=== PATIENT | male | born 1955 | race Caucasian/White ===

== ENCOUNTER 2021-05-23 19:36 | Inpatient (IN) | payer MEDICARE, BC ==
[2021-05-23] MEDS ORDERED: HYDROmorphone 1 MG/ML 1 ML SYRINGE IM STA (20:27)
--- NOTE | 2021-05-23 22:03 | XR ---
EXAMINATION TYPE: XR Hip Complete LT DATE OF EXAM: 05/23/2021 COMPARISON: NONE HISTORY: Fall. Pain TECHNIQUE: 2 views FINDINGS: There is acute comminuted intertrochanteric fracture left femur with impaction. There is no dislocation. Acetabulum is intact. IMPRESSION: Acute intertrochanteric fracture left femur.
[2021-05-23] MEDS ORDERED: NALOXONE 0.4 MG/ML 1 ML VIAL IV PRN (22:14)
--- NOTE | 2021-05-23 22:14 | ED ---
Fall HPI - General Chief Complaint: Fall Stated Complaint: Left hip pain Source: family, EMS Mode of arrival: EMS - History of Present Illness Initial Comments: Patient is a 65-year-old male past medical history of primary lateral sclerosis who presents to the emergency department after he had a mechanical fall at home. Patient normally ambulates with to walking sticks. He accidentally lost his balance and fell onto his left hip. Patient was unable to get up and ambulate and therefore and EMS was called. He was given 100 mg of fentanyl en route to the hospital with improvement in his pain. Reports 2 previous history of Achilles tendon repair on the right however this was not by an orthopedic doctor in [place]. Denies hitting his head or losing consciousness. Denies any other injuries to include chest pain, shortness of breath, pelvic pain, neck or back pain - Related Data Home Medications Medication Instructions Recorded Confirmed Cholecalciferol [Vitamin D3 (25 25 mcg PO DAILY 05/23/21 05/23/21 Mcg = 1000 Iu)] Oxybutynin Chloride 5 mg PO BID 05/23/21 05/23/21 Simvastatin [Zocor] 40 mg PO HS 05/23/21 05/23/21 Allergies Allergy/AdvReac Type Severity Reaction Status Date / Time No Known Allergies Allergy Verified 05/23/21 20:38 Review of Systems ROS Statement: Those systems with pertinent positive or pertinent negative responses have been documented in the HPI. ROS Other: All systems not noted in ROS Statement are negative. Past Medical History Past Medical History: Neurologic Disorder History of Any Multi-Drug Resistant Organisms: None Reported General Exam Limitations: language barrier, physical limitation Course Vital Signs 05/23/21 05/23/21 20:07 23:00 Temperature 97.6 F Pulse Rate 67 68 Respiratory 20 20 Rate Blood Pressure 117/71 104/68 O2 Sat by Pulse 95 95 Oximetry Medical Decision Making - Medical Decision Making Upon arrival patient is placed into room 18. Thorough history and physical exam was performed. X-rays performed of the left hip which demonstrates an intertrochanteric fracture with impaction. I did call and speak with Dr. Martinez who agreed to admit the patient. Dr. Walters will be placed on consult for medical management. Patient allowed to eat. Will be made nothing by mouth after breakfast tomorrow. IV is established and pain medications were ordered for overnight. Patient was taken to the floor in stable condition - Lab Data Result diagrams: 05/23/21 22:41 05/23/21 22:41 - EKG Data EKG Comments: EKG demonstrates a sinus rhythm with a ventricular rate of 75. MT interval 164. QRS 88. QTC of 442. No acute ST segment elevations or depressions concerning for ischemic changes Disposition Clinical Impression: Fall, Closed left hip fracture Disposition: ADMITTED IP TO THIS [facility] Condition: Stable Is patient prescribed a controlled substance at d/c from ED?: No Decision to Admit Reason: Admit from EC Decision Date: 05/23/21 Decision Time: 22:14
[2021-05-23 22:50] LABS: Basophils % (A) 0 %; Eosinophils # (A) 0.1 k/uL (0-0.7); Eosinophils % (A) 0 %; HCT 43.8 % (39.0-53.0); HGB 14.8 gm/dL (13.0-17.5); Lymphocytes # (A) 0.9 k/uL (1.0-4.8); Lymphocytes % (A) 6 %; MCH 31.2 pg (25.0-35.0); MCHC 33.9 g/dL (31.0-37.0); MCV 91.9 fL (80.0-100.0); Monocytes # (A) 0.5 k/uL (0-1.0); Monocytes % (A) 4 %; Neutrophils # (A) 12.7 k/uL (1.3-7.7); Neutrophils % (A) 89 %; Platelet Count 192 k/uL (150-450); RBC 4.76 m/uL (4.30-5.90); RDW 12.8 % (11.5-15.5); WBC 14.4 k/uL (3.8-10.6)
[2021-05-23 22:58] LABS: INR 1.1 (<1.2); Partial Thromboplastin Time 22.2 sec (22.0-30.0); Prothrombin Time 11.2 sec (9.0-12.0)
[2021-05-23] MEDS: HYDROmorphone 1 MG/ML 1 ML SYRINGE IVP PRN (23:00)
[2021-05-23 23:08] LABS: ALT 23 U/L (4-49); AST 26 U/L (17-59); African American GFR (CKD) >90 (>60 ml/min/1.73 sqM); Albumin 3.8 g/dL (3.5-5.0); Alkaline Phosphatase 60 U/L (38-126); Anion Gap 8 mmol/L; Blood Urea Nitrogen 16 mg/dL (9-20); Calcium 8.9 mg/dL (8.4-10.2); Carbon Dioxide 24 mmol/L (22-30); Chloride 103 mmol/L (98-107); Glucose 113 mg/dL (74-99); Non-African American GFR(CKD) >90 (>60 ml/min/1.73 sqM); Potassium 3.7 mmol/L (3.5-5.1); Sodium 135 mmol/L (137-145); Total Bilirubin 0.5 mg/dL (0.2-1.3); Total Protein 6.4 g/dL (6.3-8.2)
[2021-05-24] MEDS: HYDROcodone/APAP 5-325MG 1 EACH TAB PO PRN ×2 (00:22→08:15)
[2021-05-24] MEDS: HYDROmorphone 1 MG/ML 1 ML SYRINGE IVP PRN (04:07)
[2021-05-24] MEDS: CHOLECALCIFEROL 25 MCG (1000 IU) TABLET PO SCH (08:14)
[2021-05-24] MEDS: OXYBUTYNIN CHLORIDE 5 MG TAB PO SCH ×2 (08:14→20:52)
--- NOTE | 2021-05-24 09:14 | P.CONS ---
History of Present Illness - Reason for Consult Consult date: 05/24/21 - History of Present Illness HISTORY OF PRESENT ILLNESS This is a 65-year-old male patient with past medical history of amyotrophic lateral sclerosis, hyperlipidemia, vitamin D deficiency, detrusor instability of the bladder. Patient is quite active despite his diagnosis of ALS including works out with weights twice weekly with a hop strainer. He was getting off his scooter to get into the bathroom needed to urinate and when he is urinating his muscles become rigid and he fell, landed on his left hip. He denies any other injuries. Lab work revealed WBC 14.4, hemoglobin 14.8 and platelet count 192. Sodium 135, potassium 3.7, chloride 103, CO2 24, BUN 16 creatinine 0.69, blood sugar 113. Liver function tests were within normal limits. Left hip x-ray revealed intertrochanteric fracture with impaction. EKG normal sinus rhythm with no acute ST changes. Chest x-ray will be ordered. The patient has been admitted under the care of orthopedics with plan for gamma nail left IT hip fracture. Patient is cleared medically for surgical procedure. REVIEW OF SYSTEMS Constitutional: No fever, no chills, no night sweats. No weight change. No weakness, fatigue or lethargy. No daytime sleepiness. EENT: No headache. No blurred vision or double vision, no loss of vision. No loss of Hearing, no ringing in the ears, no dizziness. No nasal drainage or congestion. No epistaxis. No sore throat. Lungs: No shortness of breath, cough, no sputum production. No wheezing. Cardiovascular: No chest pain, no lower extremity edema. No palpitations. No paroxysmal nocturnal dyspnea. No orthopnea. No lightheadedness or dizziness. No syncopal episodes. Abdominal: No abdominal pain. No nausea, vomiting. No diarrhea. No constipation. No bloody or tarry stools. No loss of appetite. Genitourinary: No dysuria, increased frequency, urgency. No urinary retention. Musculoskeletal: No myalgias. No muscle weakness, no gait dysfunction, no frequent falls. No back pain. No neck pain. Integumentary: No wounds, no lesions. No rash or pruritus. No unusual bruising . No change in hair or nails. Neurologic: No aphasia. No facial droop. No change in mentation. No head injury. No headache. No paralysis. No paresthesia. Complains of rigidity of muscles. Complains of left hip pain Psychiatric: No depression. No anxiety. No mood swings. Endocrine: No abnormal blood sugars. No weight change. No excessive sweating or thirst. No cold intolerance. MEDICAL HISTORY Amyotrophic lateral sclerosis Hyperlipidemia Vitamin D deficiency Detrusor instability of the bladder SURGICAL HISTORY Achilles tendon repair on the right Right inguinal hernia repair SOCIAL HISTORY Patient smoked for 10 years and quit at age 26. Occasional alcohol use, no illicit drug use. Patient lives at home with his . FAMILY HISTORY Father at age 70 from diabetes mellitus type 2. Mother at age 50 from myocardial infarction. Patient is a total of 3 brothers; 2 , one in his 60s with coronary artery disease due to cardiac arrest from Hu-Elizabeth syndrome, one brother in his 20s from aplastic anemia patient has 1 brother alive with AVR. Patient has 1 son and 1 daughter with no major medical problems. PHYSICAL EXAMINATION Gen: This is this is a 65-year-old male. He is resting in bed appears to be fairly comfortable. Patient's is at bedside. HEENT: Head is atraumatic, normocephalic. Pupils equal, round. Sclerae is anicteric. NECK: Supple. No JVD. No lymphadenopathy. No thyromegaly. LUNGS: Clear to auscultation. No wheezes or rhonchi. No intercostal retractions. HEART: Regular rate and rhythm. No murmur. ABDOMEN: Soft. Bowel sounds are present. No masses. No tenderness. EXTREMITIES: No pedal edema. No calf tenderness. Left hip discomfort/tenderness. NEUROLOGICAL: Patient is awake, alert and oriented x3. Generalized muscle rigidity noted. ASSESSMENT AND PLAN 1. Left intratrochanteric fracture secondary to fall. Patient is scheduled for gamma nail left IT hip fracture today with Dr. Martinez. Continue current pain management, PT and OT per orthopedics. Incentive spirometry if possible to reduce incidence of atelectasis and hospital-acquired pneumonia. Chest x-ray will be obtained. 2. Amyotrophic lateral sclerosis. 3. Hyperlipidemia. Continue simvastatin 40 mg at bedtime. 4. Overactive bladder. Continue oxybutynin 5 mg twice daily. 5. GI prophylaxis. Protonix. 6. DVT prophylaxis per orthopedics. 7. COVID-19 testing negative. Patient will be admitted to the hospital for a minimum of 2 night stay. DISCHARGE PLAN TBD. Impression and plan of care have been directed as dictated by the signing physician. Grace Velasco nurse practitioner acting as scribe for signing physician. 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 History of Any Multi-Drug Resistant Organisms: None Reported Past Surgical History: No Surgical Hx Reported Past Anesthesia/Blood Transfusion Reactions: No Reported Reaction Past Psychological History: No Psychological Hx Reported Smoking Status: Never smoker Past Alcohol Use History: None Reported Medications and Allergies Home Medications Medication Instructions Recorded Confirmed Type Cholecalciferol [Vitamin D3 (25 25 mcg PO DAILY 05/23/21 05/23/21 History Mcg = 1000 Iu)] Oxybutynin Chloride 5 mg PO BID 05/23/21 05/23/21 History Simvastatin [Zocor] 40 mg PO HS 05/23/21 05/23/21 History Allergies Allergy/AdvReac Type Severity Reaction Status Date / Time No Known Allergies Allergy Verified 05/24/21 14:40 Physical Exam Vitals: Vital Signs Temp Pulse Pulse Resp BP BP Pulse Ox 05/24/21 05:00 97.4 F L 85 18 119/77 91 L 05/24/21 00:33 97.9 F 79 18 126/79 96 05/24/21 00:30 18 05/23/21 23:00 68 20 104/68 95 05/23/21 20:07 97.6 F 67 20 117/71 95 Intake and Output 05/23/21 05/24/21 05/24/21 22:59 06:59 14:59 Intake Total 400 Output Total 736 Balance -336 Intake: Oral 400 Output: Urine 400 Straight 400 Post Void Residual 336 Other: Voiding Method Diaper Incontinent # Voids 1 Weight 72.575 kg 72.575 kg Results CBC & Chem 7: 05/25/21 05:46 05/23/21 22:41 Labs: Abnormal Lab Results - Last 24 Hours (Table) 05/23/21 05/23/21 Range/Units 22:41 22:41 WBC 14.4 H (3.8-10.6) k/uL Neutrophils # 12.7 H (1.3-7.7) k/uL Lymphocytes # 0.9 L (1.0-4.8) k/uL Sodium 135 L (137-145) mmol/L Glucose 113 H (74-99) mg/dL
--- NOTE | 2021-05-24 09:28 | XR ---
EXAMINATION TYPE: XR chest 1V portable DATE OF EXAM: 05/24/2021 COMPARISON: NONE HISTORY: Preop TECHNIQUE: Single frontal view of the chest is obtained. FINDINGS: There are perihilar areas of the prominence with subsegmental right lower lobe and left lo wer lobe infiltrate cannot exclude a small left pleural effusion. No pneumothorax. Heart size normal. IMPRESSION: Prominent perihilar interstitial markings correlate for interstitial pneumonitis or veno us congestion. Bibasilar atelectasis or infiltrate correlate clinically.
--- NOTE | 2021-05-24 13:02 | P.HPOR ---
History of Present Illness H&P Date: 05/24/21 This patient is a 65-year-old male with past medical history of PLS presented to [facility] emergency department on 05/23/21 with complaints of left hip pain following fall at home. The patient's is bedside during examination and provides. The patient's states he was using his 2 walking sticks and slipped and fell onto the left hip. She states he began complaining of severe left hip pain, therefore the patient presented to [facility] emergency department. X-rays of the left hip in the emergency department revealed a left displaced basicervical femoral neck fracture. The patient was admitted under the care of orthopedic surgery with a consult placed to internal medicine. Patient is seen and examined bedside. The patient has no additional complaints besides his left hip pain. Vital signs stable. 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 History of Any Multi-Drug Resistant Organisms: None Reported Past Surgical History: No Surgical Hx Reported Past Anesthesia/Blood Transfusion Reactions: No Reported Reaction Past Psychological History: No Psychological Hx Reported Smoking Status: Never smoker Past Alcohol Use History: None Reported Medications and Allergies Home Medications Medication Instructions Recorded Confirmed Type Cholecalciferol [Vitamin D3 (25 25 mcg PO DAILY 05/23/21 05/23/21 History Mcg = 1000 Iu)] Oxybutynin Chloride 5 mg PO BID 05/23/21 05/23/21 History Simvastatin [Zocor] 40 mg PO HS 05/23/21 05/23/21 History Allergies Allergy/AdvReac Type Severity Reaction Status Date / Time No Known Allergies Allergy Verified 05/23/21 20:38 Physical Examination On examination, patient is lying in bed in apparent distress. He is alert and oriented 3. His head appears normocephalic and atraumatic. His breathing appears nonlabored. His bilateral upper extremities show no obvious deformities or signs of trauma. His right lower extremity shows no obvious deformities or signs of trauma. A focused examination of the left hip was conducted. Inspection of the left hip, there is no ecchymosis, erythema. No skin lacerations or abrasions. This diffuse pain on palpation of the left hip. There is no pain on palpation of the thigh, knee, lower leg, ankle, foot. The left lower extremity is warm and well-perfused. Dorsalis pedis pulse +2. The calves are soft and nontender to palpation bilaterally. Results Left hip x-ray 05/23/21: Displaced basicervical femoral neck fracture - Labs Labs: Abnormal Lab Results - Last 24 Hours (Table) 05/23/21 05/23/21 Range/Units 22:41 22:41 WBC 14.4 H (3.8-10.6) k/uL Neutrophils # 12.7 H (1.3-7.7) k/uL Lymphocytes # 0.9 L (1.0-4.8) k/uL Sodium 135 L (137-145) mmol/L Glucose 113 H (74-99) mg/dL H & H 05/23/21 Range/Units 22:41 Hgb 14.8 (13.0-17.5) gm/dL Hct 43.8 (39.0-53.0) % Coagulation 05/23/21 Range/Units 22:41 INR 1.1 (<1.2) Result Diagrams: 05/23/21 22:41 05/23/21 22:41 Assessment and Plan Assessment: Left displaced basicervical femoral neck fracture Plan: - The clinical and imaging findings were discussed with the patient. The patient was discussed with Dr. Roldan. Recommended surgical fixation of the left hip fracture with a short gamma nail this afternoon, pending medical clearance and consent. Patient is are agreeable to this plan. - Pain management as needed. - Internal medicine for perioperative medical management. - NPO diet.
[2021-05-24] MEDS ORDERED: IV FLUID CONTINUATION 1,000 ML IV ONE (14:30)
[2021-05-24] MEDS ORDERED: ONDANSETRON 4 MG/2 ML VIAL ONE (14:36)
[2021-05-24] MEDS ORDERED: DEXAMETHASONE SOD PHOSPHATE 4 MG/ML 1 ML VIAL IVP ONE (15:02)
[2021-05-24] MEDS ORDERED: fentaNYL (PF) 50 MCG/ML 2 ML AMP IVP ONE ×2 (15:03→16:07)
[2021-05-24] MEDS ORDERED: LIDOCAINE 1% INJ 10MG/ML (20 ML MDV) ONE (17:15)
[2021-05-24] MEDS ORDERED: PROPOFOL 10 MG/ML 20 ML VIAL IV ONE (17:15)
[2021-05-24] MEDS ORDERED: fentaNYL (PF) 50 MCG/ML 2 ML AMP ONE (17:15)
[2021-05-24] MEDS ORDERED: ROCURONIUM 10 MG/ML (5 ML VIAL) IV ONE (17:15)
[2021-05-24] MEDS ORDERED: PHENYLEPHRINE-0.9% NACL SYG 1,000 MCG/10 ML SYRINGE ONE (17:15)
[2021-05-24] MEDS ORDERED: SUGAMMADEX SODIUM 500 MG/5 ML SDV IV ONE (17:15)
[2021-05-24] MEDS ORDERED: LACTATED RINGERS 1,000 ML IV ONE (17:16)
[2021-05-24] MEDS ORDERED: ONDANSETRON 4 MG/2 ML VIAL IVP PRN (18:57)
[2021-05-24] MEDS ORDERED: hydrOXYzine pamoate 25 MG CAP PO PRN (18:57)
[2021-05-24] MEDS ORDERED: HYDROcodone/APAP 5-325MG 1 EACH TAB PO PRN (18:57)
[2021-05-24] MEDS ORDERED: HYDROmorphone 0.2 MG/1 ML SYRINGE IVP PRN (18:57)
[2021-05-24] MEDS ORDERED: HYDROmorphone 0.5 MG/0.5 ML SYRINGE IVP PRN (18:57)
--- NOTE | 2021-05-24 19:15 | P.OP ---
Date of Procedure: 05/24/21 Preoperative Diagnosis: 1. Left intertrochanteric hip fracture 2. Primary lateral sclerosis Postoperative Diagnosis: Same Procedure(s) Performed: Operative fixation of left intertrochanteric hip fracture with short intramedullary hip screw Implants: Short gamma nail, 11 x 180, 95 mm lag screw, 37.5 mm distal interlocking screw Anesthesia: DARELL Surgeon: Mukesh Roldan Lpn [facility]1: Alexandro Pereira Estimated Blood Loss (ml): 50 Pathology: none sent Condition: stable Disposition: PACU Indications for Procedure: The patient is a very pleasant 65-year-old male with a medical history significant for Primary lateral sclerosis and progressive extremity weakness who sustained a ground-level fall resulting in a displaced left intertrochanteric hip fracture. The patient was admitted to orthopedics and internal medicine was consulted for clearance and perioperative medical management. I met with the patient and his to discuss treatment options. I recommended operative fixation of his left hip fracture with a short intramedullary hip screw. We discussed the potential risks and complications of surgery at length including but certainly not limited to risk of infection, damage to local blood vessels or nerves, nonunion, malunion, varus collapse, implant failure, postoperative periprosthetic fracture, need for further surgery, DVT, PE, acute coronary event, stroke, pneumonia, , and failure to thrive. The patient is understand that while these are the most common competitions other less common complications are possible. They provided their verbal and written consent to go forward with surgery. Description of Procedure: The patient was identified in preoperative holding and the correct left leg was marked with my initials. I reviewed the consent form with the patient and his . All their questions were answered. The patient was then brought back to the operating room by anesthesia. He was given a general anesthetic and preoperative antibiotics on the [facility]. Boots for the Adriana table were placed. He was then carefully transferred onto the Adriana table. A perineal post was placed. His right arm was secured to the OR table on a padded arm camp and the left arm was draped across his body and secured with pillows and tape. Both which were secured to the spars of the Adriana table. A nonsterile drapes were applied. A timeout was performed identifying the correct patient, operative extremity, and procedure. A closed reduction was performed using longitudinal traction, internal rotation, and adduction. The right leg was scissored and abductor did. The left leg was then prepped and draped in standard sterile fashion. I began by making a 3 cm stab incision just proximal to the tip of the greater trochanter. A guidepin was placed just medial to the tip of the greater trochanter on the AP view and colinear with the femoral canal on the lateral view. A soft tissue protector and opening reamer was used to open the canal. A ball-tipped guidewire was placed into the femur. I then reamed up to a 12.5 mm diameter reamer to open the proximal canal for a short nail. An 11 mm diameter nail was dispensed and hooked up to the targeting arm. It was placed over the guidewire which was then removed. A stab incision was made for the lag screw and a 95 mm lag screw was placed centered on the AP and lateral view and the femoral head. A distal stab incision was made to the targeting arm and a 37.5 mm distal interlocking screw was placed. The targeting arm was removed proximally and final fluoroscopic images were taken. All wounds were thoroughly irrigated and closed in layers. A sterile dressing was applied. The patient was then carefully taken off the Adriana table and transferred to a gurney, extubated, and brought to recovery room having tolerated the procedure well. Alexandro Pereira PA-C was required as a skilled medical office receptionist assistant due to the complexity of the surgical procedure for patient positioning, retraction, placement of hardware, closure of wounds. Plan: The patient can weight-bear as tolerated on his left leg. He'll need 2 doses of postoperative antibiotics. DVT prophylaxis per primary team, from an orthopedic standpoint would recommend aspirin 81 mg twice a day.
[2021-05-24] MEDS ORDERED: HYDROmorphone 0.5 MG/0.5 ML SYRINGE IVP ONE (19:34)
[2021-05-24] MEDS: LACTATED RINGERS 1,000 ML IV SCH (20:11)
[2021-05-24] MEDS: SENNOSIDES-DOCUSATE SODIUM 1 EACH TAB PO SCH (20:51)
[2021-05-24] MEDS: ASPIRIN 81 MG PO SCH (20:51)
[2021-05-24] MEDS: ATORVASTATIN 20 MG TAB PO SCH (20:52)
[2021-05-24 21:17] LABS: Basophils % (A) 0 %; Eosinophils % (A) 0 %; HCT 40.3 % (39.0-53.0); HGB 13.4 gm/dL (13.0-17.5); Lymphocytes # (A) 0.5 k/uL (1.0-4.8); Lymphocytes % (A) 4 %; MCH 31.3 pg (25.0-35.0); MCHC 33.2 g/dL (31.0-37.0); MCV 94.1 fL (80.0-100.0); Mean Platelet Volume 8.3; Monocytes # (A) 0.3 k/uL (0-1.0); Monocytes % (A) 3 %; Neutrophils # (A) 11.3 k/uL (1.3-7.7); Neutrophils % (A) 92 %; Platelet Count 154 k/uL (150-450); RBC 4.28 m/uL (4.30-5.90); RDW 12.8 % (11.5-15.5); WBC 12.3 k/uL (3.8-10.6)
[2021-05-24] MEDS: HYDROmorphone 0.5 MG/0.5 ML SYRINGE IVP PRN (22:28)
--- NOTE | 2021-05-24 23:02 | XR ---
EXAMINATION TYPE: XR Hip Complete LT DATE OF EXAM: 05/24/2021 COMPARISON: NONE HISTORY: Hip pain. Hip nailing TECHNIQUE: 7 views FINDINGS: 7 fluoroscopic images were obtained at show placement of intramedullary geovany and transverse screw fixing the intertrochanteric fracture of the left femur. Fragments are in anatomic position. IMPRESSION: No complicating process seen. 1 minute and one second of fluoroscopy time was recorded for the surgery.
[2021-05-25] MEDS: HYDROmorphone 0.5 MG/0.5 ML SYRINGE IVP PRN ×3 (02:35→08:24)
[2021-05-25] MEDS: LACTATED RINGERS 1,000 ML IV SCH ×2 (04:13→19:23)
[2021-05-25 06:33] LABS: HCT 36.6 % (39.0-53.0); HGB 12.1 gm/dL (13.0-17.5); MCHC 33.2 g/dL (31.0-37.0); MCV 93.6 fL (80.0-100.0); Mean Platelet Volume 8.3; Platelet Count 141 k/uL (150-450); RBC 3.91 m/uL (4.30-5.90); RDW 12.7 % (11.5-15.5); WBC 8.9 k/uL (3.8-10.6)
[2021-05-25] MEDS: ASPIRIN 81 MG PO SCH ×2 (08:02→20:09)
[2021-05-25] MEDS: CHOLECALCIFEROL 25 MCG (1000 IU) TABLET PO SCH (08:02)
[2021-05-25] MEDS: OXYBUTYNIN CHLORIDE 5 MG TAB PO SCH ×2 (08:02→20:10)
--- NOTE | 2021-05-25 08:41 | FL ---
Fluoroscopy History: ORIF LT hip LT hip nailing with Dr. Roldan. 1 min 1 sec fluoro time
[2021-05-25] MEDS: HYDROcodone/APAP 5-325MG 1 EACH TAB PO PRN ×2 (10:27→17:43)
[2021-05-25] MEDS ORDERED: IPRATROPIUM-ALBUTEROL 3 ML NEB INHALATION PRN (11:59)
--- NOTE | 2021-05-25 12:54 | P.PN ---
Subjective Progress Note Date: 05/25/21 HISTORY OF PRESENT ILLNESS This is a 65-year-old male patient with past medical history of amyotrophic lateral sclerosis, hyperlipidemia. Patient is quite active despite his diagno sis of ALS including works out with weights twice weekly with a maintenance trainer. He was getting off his scooter to get into the bathroom needed to urinate and when he is urinating his muscles become rigid and he fell, landed on his left hip. He denies any other injuries. Lab work revealed WBC 14.4, hemoglobin 14.8 and platelet count 192. Sodium 135, potassium 3.7, chloride 103, CO2 24, BUN 16 creatinine 0.69, blood sugar 113. Liver function tests were within normal limits. Left hip x-ray revealed intertrochanteric fracture with impaction. EKG normal sinus rhythm with no acute ST changes. Chest x-ray will be ordered. The patient has been admitted under the care of orthopedics with plan for gamma nail left IT hip fracture. Patient is cleared medically for surgical procedure. 05/25: Yesterday, patient underwent operative fixation of the left intratrochanteric hip fracture with short intramedullary hip screw with Dr. Roldan. He has been afebrile, heart rate 83, blood pressure 97/61, pulse ox 97% on 2 L nasal cannula. Blood work reveals WBC 8.9, hemoglobin 12.1, platelet count 141. Patient is only able to reach 100 on incentive spirometry. He is eating well. Chest x-ray ordered yesterday revealed prominent perihilar interstitial markings correlate for interstitial pneumonitis or venous congestion. Bibasilar atelectasis or infiltrate correlate clinically. Patient will be started on Zosyn and DuoNeb treatments. Patient is found today sitting up in a recliner with legs elevated. He states his pain to the left hip is a 7/10. He had Garcia catheter removed this morning. He is complaining of occasional cough only. His breathing status seems to be stable today. REVIEW OF SYSTEMS Constitutional: No fever, no chills, no night sweats. No weight change. No weakness, fatigue or lethargy. No daytime sleepiness. EENT: No headache. No blurred vision or double vision, no loss of vision. No loss of Hearing, no ringing in the ears, no dizziness. No nasal drainage or congestion. No epistaxis. No sore throat. Lungs: No shortness of breath, cough, no sputum production. No wheezing. Cardiovascular: No chest pain, no lower extremity edema. No palpitations. No paroxysmal nocturnal dyspnea. No orthopnea. No lightheadedness or dizziness. No syncopal episodes. Abdominal: No abdominal pain. No nausea, vomiting. No diarrhea. No constipa tion. No bloody or tarry stools. No loss of appetite. Genitourinary: No dysuria, increased frequency, urgency. No urinary retention. Musculoskeletal: No myalgias. No muscle weakness, no gait dysfunction, no frequent falls. No back pain. No neck pain. Integumentary: No wounds, no lesions. No rash or pruritus. No unusual bruising. No change in hair or nails. Neurologic: Chronic aphasia secondary to ALS. No facial droop. No change in mentation. No head injury. No headache. No paralysis. No paresthesia. Complains of rigidity of muscles. Complains of left hip pain Psychiatric: No depression. No anxiety. No mood swings. Endocrine: No abnormal blood sugars. No weight change. No excessive sweating or thirst. No cold intolerance. PHYSICAL EXAMINATION Gen: This is this is a 65-year-old male. He is resting in bed appears to be fairly comfortable. Patient's is at bedside. HEENT: Head is atraumatic, normocephalic. Pupils equal, round. Sclerae is anicteric. NECK: Supple. No JVD. No lymphadenopathy. No thyromegaly. LUNGS: Scattered rhonchi. No intercostal retractions. HEART: Regular rate and rhythm. No murmur. ABDOMEN: Soft. Bowel sounds are present. No masses. No tenderness. EXTREMITIES: No pedal edema. No calf tenderness. Left hip discomfort/tenderness. NEUROLOGICAL: Patient is awake, alert and oriented x3. Generalized muscle rigidity noted. ASSESSMENT AND PLAN 1. Left intratrochanteric fracture secondary to fall status post IM hip screw 05/25. Continue current pain management, PT and OT per orthopedics. Incentive spirometry if possible to reduce incidence of atelectasis and hospital-acquired pneumonia. 2. Bilateral atelectasis or infiltrates, possible aspiration pneumonia cannot b e completely ruled out. Patient will be started on Zosyn 3.375 g IV piggyback every 8 hours and DuoNeb treatments scheduled 4 times daily and as needed. 3. Amyotrophic lateral sclerosis. 4. Hyperlipidemia. Continue simvastatin 40 mg at bedtime. 5. Overactive bladder. Continue oxybutynin 5 mg twice daily. 6. GI prophylaxis. Protonix. 7. DVT prophylaxis per orthopedics. 8. COVID-19 testing negative. DISCHARGE PLAN Subacute rehab at [facility] Impression and plan of care have been directed as dictated by the signing physician. Grace Velasco nurse practitioner acting as scribe for signing physician. Objective - Vital Signs Vital signs: Vital Signs Temp 99.5 F 05/25/21 04:11 Pulse 83 05/25/21 04:11 Resp 18 05/25/21 04:11 BP 97/61 05/25/21 04:11 Pulse Ox 97 05/25/21 04:11 Intake & Output 05/24/21 05/25/21 05/25/21 18:59 06:59 18:59 Intake Total 1350 1100 Output Total 320 400 Balance 1030 700 Intake: IV 1350 0 Intake, IV Titration 1000 Amount Lactated Ringers 1,000 ml 1000 @ 100 mls/hr IV .Q10H [facility] Rx#:[id number] Oral 100 Output: Urine 300 400 Estimated Blood Loss 20 Other: Voiding Method Diaper Indwelling Catheter Indwelling Catheter Incontinent - Labs CBC & Chem 7: 05/25/21 05:46 05/23/21 22:41 Labs: Abnormal Lab Results - Last 24 Hours (Table) 05/24/21 05/25/21 Range/Units 21:00 05:46 WBC 12.3 H (3.8-10.6) k/uL RBC 4.28 L 3.91 L (4.30-5.90) m/uL Hgb 12.1 L (13.0-17.5) gm/dL Hct 36.6 L (39.0-53.0) % Plt Count 141 L (150-450) k/uL Neutrophils # 11.3 H (1.3-7.7) k/uL Lymphocytes # 0.5 L (1.0-4.8) k/uL
[2021-05-25] MEDS: PIPERACILLIN-TAZOBACTAM 3.375 GM in SODIUM CHLORIDE 0.9% 100 ML IVPB SCH ×2 (13:00→20:09)
--- NOTE | 2021-05-25 14:05 | P.PN ---
Subjective Progress Note Date: 05/25/21 This patient is a 65- year old male with a past medial history of PLS that is status-post operative fixation of left intertrochanteric hip fracture with short intramedullary hip screw on 05/24/21. Today is post-operative day #1. Patient is seen and examined bedside. Patient is nonverbal and communicates with his phone. When asked if pain is well-controlled, patient nods yes. He states he does feel like it is wearing off too soon, although he does not want his medication changed. He is tolerating oral intake well. He has no new complaints. Vital signs stable. Objective - Vital Signs Vital signs: Vital Signs Temp 98.1 F 05/25/21 12:40 Pulse 77 05/25/21 12:40 Resp 16 05/25/21 12:40 BP 94/56 05/25/21 12:40 Pulse Ox 95 05/25/21 12:40 Intake & Output 05/24/21 05/25/21 05/25/21 18:59 06:59 18:59 Intake Total 1350 1100 Output Total 320 400 Balance 1030 700 Intake: IV 1350 0 Intake, IV Titration 1000 Amount Lactated Ringers 1,000 ml 1000 @ 100 mls/hr IV .Q10H [facility] Rx#:[id number] Oral 100 Output: Urine 300 400 Estimated Blood Loss 20 Other: Voiding Method Diaper Indwelling Catheter Indwelling Catheter Incontinent - Exam On examination, the patient is lying in bed in no distress. He is alert and oriented 3. On inspection of the left hip, there are 3 clean, dry, intact reynolds rgical dressings in place. No bleeding or drainage through the dressing. The thigh soft and compressible. Patient is able to wiggle his left toes appropriately. Calf is soft and nontender to palpation. Dorsalis pedis pulse +2. The left lower extremity is warm and well perfused with brisk capillary refill distally. - Labs CBC & Chem 7: 05/25/21 05:46 05/23/21 22:41 Labs: Abnormal Lab Results - Last 24 Hours (Table) 05/24/21 05/25/21 Range/Units 21:00 05:46 WBC 12.3 H (3.8-10.6) k/uL RBC 4.28 L 3.91 L (4.30-5.90) m/uL Hgb 12.1 L (13.0-17.5) gm/dL Hct 36.6 L (39.0-53.0) % Plt Count 141 L (150-450) k/uL Neutrophils # 11.3 H (1.3-7.7) k/uL Lymphocytes # 0.5 L (1.0-4.8) k/uL Assessment and Plan Assessment: Status-post operative fixation of left intertrochanteric hip fracture with short intramedullary hip screw on 05/24/21. Post-operative day #1. Plan: - Weight bearing as tolerated on operative leg. Up with housing assistant property manager, up with a walker. - Physical therapy for gait and balance training. - Pain management as needed. Decrease use of IV diluadid tolerated. - Aspirin for DVT prophylaxis. - Appreciate internal medicine consult for ladarius-operative medical management. - Anticipate discharge to rehab when medically cleared.
[2021-05-25 16:04] LABS: African American GFR (CKD) 105.8 (60.0-200.0); Anion Gap 12.6 mmol/L (4.00-12.00); BUN/Creat Ratio 20.24 Ratio (12.00-20.00); Calcium 8.3 mg/dL (8.7-10.3); Carbon Dioxide 24.4 mmol/L (21.6-31.8); Non-African American GFR(CKD) 91.2 (60.0-200.0); Potassium 4.3 mmol/L (3.5-5.5)
[2021-05-25] MEDS: IPRATROPIUM-ALBUTEROL 3 ML NEB INHALATION SCH ×2 (16:22→16:23)
[2021-05-25] MEDS: SENNOSIDES-DOCUSATE SODIUM 1 EACH TAB PO SCH (20:10)
[2021-05-25] MEDS: ATORVASTATIN 20 MG TAB PO SCH (20:10)
[2021-05-25] MEDS: BACLOFEN 10 MG TAB PO PRN (20:11)
[2021-05-26] MEDS: LACTATED RINGERS 1,000 ML IV SCH ×2 (04:07→11:35)
[2021-05-26] MEDS: PIPERACILLIN-TAZOBACTAM 3.375 GM in SODIUM CHLORIDE 0.9% 100 ML IVPB SCH (04:07)
[2021-05-26 04:08] VITALS: BP 99/62; RESP 20; TEMP 99.2
[2021-05-26] MEDS: HYDROcodone/APAP 5-325MG 1 EACH TAB PO PRN ×2 (05:54→13:34)
[2021-05-26 07:28] LABS: Basophils % (A) 0 %; Eosinophils # (A) 0.1 k/uL (0-0.7); Eosinophils % (A) 1 %; HCT 30.3 % (39.0-53.0); HGB 10.2 gm/dL (13.0-17.5); Lymphocytes # (A) 1.2 k/uL (1.0-4.8); Lymphocytes % (A) 15 %; MCH 31.8 pg (25.0-35.0); MCHC 33.8 g/dL (31.0-37.0); MCV 94.1 fL (80.0-100.0); Mean Platelet Volume 8.5; Monocytes # (A) 0.5 k/uL (0-1.0); Monocytes % (A) 6 %; Neutrophils # (A) 6.2 k/uL (1.3-7.7); Neutrophils % (A) 76 %; Platelet Count 126 k/uL (150-450); RBC 3.21 m/uL (4.30-5.90); WBC 8.2 k/uL (3.8-10.6)
[2021-05-26] MEDS: IPRATROPIUM-ALBUTEROL 3 ML NEB INHALATION SCH ×2 (07:41→11:21)
--- NOTE | 2021-05-26 08:51 | P.DS ---
Providers Date of admission: 05/23/21 22:14 Expected date of discharge: 05/26/21 Attending physician: Jose Martinez Consults: 05/23/21 22:21 Consult Physician Urgent Consulting Provider: Familia Walters Consult Reason/Comments: fall, left hip fracture Do you want consulting provider notified?: Yes Primary care physician: Familia Walters - Discharge Diagnosis(es) (1) Closed left hip fracture Current Visit: Yes Status: Acute (2) Fall Current Visit: Yes Status: Acute Hospital Course: This is a 65-year-old male with medical history of PLS sustained fracture to his left hip when he fell. He was admitted to our service for surgical inte rvention. He was taken to surgery on 05/24/2021 for closed reduction with insertion of intramedullary hip screw of the left hip. The procedure is performed without complication or sequelae. The patient is doing well postoperatively from an orthopedic standpoint. He is awaiting transfer to inpatient rehabilitation today. Please see med rec for accurate list of home medications. Patient Condition at Discharge: Stable Plan - Discharge Summary Discharge Rx Participant: No New Discharge Prescriptions: New Baclofen [Lioresal] 10 mg PO TID tab Sennosides-Docusate Sodium [Senokot-S] 2 each PO HS tab Aspirin 81 mg PO BID 30 Days #60 tab Amoxicillin/Potassium Clav [Augmentin 875-125 Tablet] 1 tab PO BID 7 Days #14 tab Ipratropium-Albuterol Nebulize [Duoneb 0.5 mg-3 mg/3 ml Soln] 3 ml INHALATION RT-TID ml Continue Cholecalciferol [Vitamin D3 (25 Mcg = 1000 Iu)] 25 mcg PO DAILY Oxybutynin Chloride 5 mg PO BID Simvastatin [Zocor] 40 mg PO HS Discharge Medication List Cholecalciferol [Vitamin D3 (25 Mcg = 1000 Iu)] 25 mcg PO DAILY 05/23/21 [History] Oxybutynin Chloride 5 mg PO BID 05/23/21 [History] Simvastatin [Zocor] 40 mg PO HS 05/23/21 [History] Aspirin 81 mg PO BID 30 Days #60 tab 05/25/21 [Rx] Amoxicillin/Potassium Clav [Augmentin 875-125 Tablet] 1 tab PO BID 7 Days #14 tab 05/26/21 [Rx] Baclofen [Lioresal] 10 mg PO TID tab 05/26/21 [Rx] Ipratropium-Albuterol Nebulize [Duoneb 0.5 mg-3 mg/3 ml Soln] 3 ml INHALATION RT-TID ml 05/26/21 [Rx] Sennosides-Docusate Sodium [Senokot-S] 2 each PO HS tab 05/26/21 [Rx] Follow up Appointment(s)/Referral(s): Familia Walters MD [Primary Care Provider] - 1 Week (at [facility]) Mukesh Roldan MD [Medical Doctor] - 2 Weeks Activity/Diet/Wound Care/Special Instructions: Weight bear as tolerated on operative leg with a walker. Up with assistance. Pain medication as needed. Aspirin for DVT prophylaxis. Daily dressings changes with tegaderm, 4x4s, and tegaderm. Follow-up in the office in [address] Roldan. Call the office with any questions or concerns, Discharge Disposition: TRANSFER TO SNF/ECF
[2021-05-26] MEDS: BACLOFEN 10 MG TAB PO PRN (09:13)
[2021-05-26] MEDS: ASPIRIN 81 MG PO SCH (09:13)
[2021-05-26] MEDS: CHOLECALCIFEROL 25 MCG (1000 IU) TABLET PO SCH (09:13)
[2021-05-26] MEDS: OXYBUTYNIN CHLORIDE 5 MG TAB PO SCH (09:13)
[2021-05-26 11:23] VITALS: PULSE 90
--- NOTE | 2021-05-26 13:41 | P.PN ---
Subjective Progress Note Date: 05/26/21 HISTORY OF PRESENT ILLNESS This is a 65-year-old male patient with past medical history of amyotrophic lateral sclerosis, hyperlipidemia. Patient is quite active despite his diagno sis of ALS including works out with weights twice weekly with a dog trainer. He was getting off his scooter to get into the bathroom needed to urinate and when he is urinating his muscles become rigid and he fell, landed on his left hip. He denies any other injuries. Lab work revealed WBC 14.4, hemoglobin 14.8 and platelet count 192. Sodium 135, potassium 3.7, chloride 103, CO2 24, BUN 16 creatinine 0.69, blood sugar 113. Liver function tests were within normal limits. Left hip x-ray revealed intertrochanteric fracture with impaction. EKG normal sinus rhythm with no acute ST changes. Chest x-ray will be ordered. The patient has been admitted under the care of orthopedics with plan for gamma nail left IT hip fracture. Patient is cleared medically for surgical procedure. 05/25: Yesterday, patient underwent operative fixation of the left intratrochanteric hip fracture with short intramedullary hip screw with Dr. Roldan. He has been afebrile, heart rate 83, blood pressure 97/61, pulse ox 97% on 2 L nasal cannula. Blood work reveals WBC 8.9, hemoglobin 12.1, platelet count 141. Patient is only able to reach 100 on incentive spirometry. He is eating well. Chest x-ray ordered yesterday revealed prominent perihilar interstitial markings correlate for interstitial pneumonitis or venous congestion. Bibasilar atelectasis or infiltrate correlate clinically. Patient will be started on Zosyn and DuoNeb treatments. Patient is found today sitting up in a recliner with legs elevated. He states his pain to the left hip is a 7/10. He had Garcia catheter removed this morning. He is complaining of occasional cough only. His breathing status seems to be stable today. 05/25: Patient is found sitting up in bed this morning for breakfast. He states his pain is controlled. He did have spasms especially in the legs for which baclofen was started and will be increased and continued for the fdc. Patient continues to have occasional cough. He has been afebrile, heart rate 88, blood pressure 99/62, pulse ox 96% on room air. Patient is scheduled for discharge to [facility] today. Medication reconciliation has been reviewed. REVIEW OF SYSTEMS Constitutional: No fever, no chills, no night sweats. No weight change. No weakness, fatigue or lethargy. No daytime sleepiness. EENT: No headache. No blurred vision or double vision, no loss of vision. No loss of Hearing, no ringing in the ears, no dizziness. No nasal drainage or congestion. No epistaxis. No sore throat. Lungs: No shortness of breath, occasional cough, no sputum production. No wheezing. Cardiovascular: No chest pain, no lower extremity edema. No palpitations. No paroxysmal nocturnal dyspnea. No orthopnea. No lightheadedness or dizziness. No syncopal episodes. Abdominal: No abdominal pain. No nausea, vomiting. No diarrhea. No constipation. No bloody or tarry stools. No loss of appetite. Genitourinary: No dysuria, increased frequency, urgency. No urinary retention. Musculoskeletal: No myalgias. No muscle weakness, no gait dysfunction, no frequent falls. No back pain. No neck pain. Integumentary: No wounds, no lesions. No rash or pruritus. No unusual bruising. No change in hair or nails. Neurologic: Chronic aphasia secondary to ALS. No facial droop. No change in mentation. No head injury. No headache. No paralysis. No paresthesia. Complains of rigidity of muscles. Complains of left hip pain Psychiatric: No depression. No anxiety. No mood swings. Endocrine: No abnormal blood sugars. No weight change. No excessive sweating or thirst. No cold intolerance. PHYSICAL EXAMINATION Gen: This is this is a 65-year-old male. He is resting in bed appears to be fairly comfortable. HEENT: Head is atraumatic, normocephalic. Pupils equal, round. Sclerae is anicteric. NECK: Supple. No JVD. No lymphadenopathy. No thyromegaly. LUNGS: Scattered rhonchi. No intercostal retractions. HEART: Regular rate and rhythm. No murmur. ABDOMEN: Soft. Bowel sounds are present. No masses. No tenderness. EXTREMITIES: No pedal edema. No calf tenderness. Left hip discomfort/tenderness. Dressing to the left hip shows no drainage or bleeding. NEUROLOGICAL: Patient is awake, alert and oriented x3. Generalized muscle rigidity noted. ASSESSMENT AND PLAN 1. Left intratrochanteric fracture secondary to fall status post IM hip screw 05/25. Continue current pain management, PT and OT per orthopedics. Incentive spirometry if possible to reduce incidence of atelectasis and hospital-acquired pneumonia. 2. Bilateral atelectasis or infiltrates, possible aspiration pneumonia cannot be completely ruled out. Patient will be started on Zosyn 3.375 g IV piggyback every 8 hours and DuoNeb treatments scheduled 4 times daily and as needed. Patient will be transitioned to Augmentin for 7 days at discharge 3. Amyotrophic lateral sclerosis. 4. Hyperlipidemia. Continue simvastatin 40 mg at bedtime. 5. Overactive bladder. Continue oxybutynin 5 mg twice daily. 6. GI prophylaxis. Protonix. 7. DVT prophylaxis per orthopedics. 8. COVID-19 testing negative. DISCHARGE PLAN Subacute rehab at [facility] Impression and plan of care have been directed as dictated by the signing physician. Grace Velasco nurse practitioner acting as scribe for signing physician. Objective - Vital Signs Vital signs: Vital Signs Temp 99.2 F 05/26/21 04:08 Pulse 88 05/26/21 07:53 Resp 20 05/26/21 04:08 BP 99/62 05/26/21 04:08 Pulse Ox 96 05/26/21 04:08 Intake & Output 05/25/21 05/26/21 05/26/21 18:59 06:59 18:59 Intake Total 150 1200 Output Total 800 Balance -650 1200 Intake: Intake, IV Titration 150 1200 Amount Lactated Ringers 1,000 ml 1000 @ 100 mls/hr IV .Q10H [facility] Rx#:[id number] Piperacillin-Tazobactam 3 100 200 .375 gm In Sodium Chloride 0.9% 100 ml @ 25 mls/hr IVPB Q8HR@0400, 1200,2000 [facility] Rx#: [id number] ceFAZolin 2 gm In Sodium 50 Chloride 0.9% 50 ml @ 100 mls/hr IVPB Q8H [facility] Rx#: [id number] Output: Urine 800 Other: Voiding Method Indwelling Catheter External Catheter # Voids 3 - Labs CBC & Chem 7: 05/26/21 06:25 05/25/21 05:46 Labs: Abnormal Lab Results - Last 24 Hours (Table) 05/25/21 05/26/21 Range/Units 05:46 06:25 RBC 3.21 L (4.30-5.90) m/uL Hgb 10.2 L (13.0-17.5) gm/dL Hct 30.3 L (39.0-53.0) % Plt Count 126 L (150-450) k/uL Anion Gap 12.60 H (4.00-12.00) mmol/L BUN/Creatinine Ratio 20.24 H (12.00-20.00) Ratio Calcium 8.3 L (8.7-10.3) mg/dL
== END 2021-05-26 13:45 | DRG 480 ==
LOC: EC 19:36 → 5NMEDONC 22:14
PROVIDERS: ADMIT Orthopaedic Surgery Sports Medicine; ATTEND Orthopaedic Surgery Sports Medicine
PROC: 0QS736Z Reposition Left Upper Femur with Intramedullary Internal Fixation Device, Percutaneous Approach (ICD-10-PCS; principal; 2021-05-24 17:00)
PROC: 8E0YXBF Computer Assisted Procedure of Lower Extremity, With Fluoroscopy (ICD-10-PCS; 2021-05-25)
DX: S72.142A Displaced intertrochanteric fracture of left femur, initial encounter for closed fracture (principal); J69.0 Pneumonitis due to inhalation of food and vomit; G12.21 Amyotrophic lateral sclerosis; G12.23 Primary lateral sclerosis; J98.11 Atelectasis; R47.01 Aphasia; E78.5 Hyperlipidemia, unspecified; N32.81 Overactive bladder; Z20.822 Contact with and (suspected) exposure to COVID-19; W01.0XXA Fall on same level from slipping, tripping and stumbling without subsequent striking against object, initial encounter; Y92.009 Unspecified place in unspecified non-institutional (private) residence as the place of occurrence of the external cause; Y93.01 Activity, walking, marching and hiking; Z79.899 Other long term (current) drug therapy; Z87.891 Personal history of nicotine dependence
CPT/HCPCS: 71045; 73502; 80048; 80053; 85025; 85027; 85610; 85730; 87635; 93005; 94640; 96372; 96374; 99285

== ENCOUNTER 2021-05-27 11:25 | Emergency (ER) | payer MEDICARE, BC ==
[2021-05-27 11:40] VITALS: BP 145/83; PULSE 86; RESP 20; TEMP 97.7
[2021-05-27] MEDS ORDERED: LIDOCAINE URO-JET JELLY 2% 5 ML KIT URETHRAL ONE (12:36)
--- NOTE | 2021-05-27 12:44 | ED ---
Male Urogenital HPI - General Chief complaint: Urogenital Stated complaint: Urinary Retention Source: patient, RN notes reviewed Mode of arrival: EMS Limitations: language barrier, physical limitation - History of Present Illness Initial comments: Patient is 65-year-old male presented to ED for inability to pass urine. Patient's states that Alex العراقي tried to place a catheter several times this morning without success. patient is nonverbal and has to communicate through phone device. Patient states he has increasing pressure and discomfort since 3 AM with no relief. Patient expresses frustration and pain with waiting for cauterization placement. Patient voices no other concerns. patient denies fever, nausea, vomiting, or constipation. - Related Data Home Medications Medication Instructions Recorded Confirmed Cholecalciferol [Vitamin D3 (25 25 mcg PO DAILY 05/23/21 05/23/21 Mcg = 1000 Iu)] Oxybutynin Chloride 5 mg PO BID 05/23/21 05/23/21 Simvastatin [Zocor] 40 mg PO HS 05/23/21 05/23/21 Previous Rx's Medication Instructions Recorded Aspirin 81 mg PO BID 30 Days #60 tab 05/25/21 Amoxicillin/Potassium Clav 1 tab PO BID 7 Days #14 tab 05/26/21 [Augmentin 875-125 Tablet] Baclofen [Lioresal] 10 mg PO TID tab 05/26/21 HYDROcodone/APAP 5-325MG [[place] 1 - 2 tab PO Q6HR PRN #32 tab 05/26/21 5-325] Ipratropium-Albuterol Nebulize 3 ml INHALATION RT-TID ml 05/26/21 [Duoneb 0.5 mg-3 mg/3 ml Soln] Sennosides-Docusate Sodium 2 each PO HS tab 05/26/21 [Senokot-S] Allergies Allergy/AdvReac Type Severity Reaction Status Date / Time No Known Allergies Allergy Verified 05/24/21 14:40 Review of Systems ROS Statement: Those systems with pertinent positive or pertinent negative responses have been documented in the HPI. ROS Other: All systems not noted in ROS Statement are negative. 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 History of Any Multi-Drug Resistant Organisms: None Reported Past Surgical History: Orthopedic Surgery Additional Past Surgical History / Comment(s): Left Hip surgery 05/24/21 Past Anesthesia/Blood Transfusion Reactions: No Reported Reaction Past Psychological History: No Psychological Hx Reported Smoking Status: Never smoker Past Alcohol Use History: None Reported General Exam Limitations: language barrier, physical limitation General appearance: alert, in no apparent distress Respiratory exam: Present: normal lung sounds bilaterally. Absent: respiratory distress, wheezes, rales, rhonchi, stridor Cardiovascular Exam: Present: regular rate, normal rhythm, normal heart sounds. Absent: systolic murmur, diastolic murmur, rubs, gallop, clicks GI/Abdominal exam: Present: distended, tenderness Neurological exam: Present: alert, oriented X3, other (aphasia ) Skin exam: Present: warm, dry, intact, normal color. Absent: rash Course Vital Signs 05/27/21 11:34 Temperature 97.7 F Pulse Rate 86 Respiratory 20 Rate Blood Pressure 145/83 O2 Sat by Pulse 97 Oximetry Medical Decision Making - Medical Decision Making Patient had a urinary retention Garcia catheter was able to replace. There is noted blood within the urine secondary to trauma most likely. There is only a few WBCs noted. Generally cultured patient will follow-up with urology return parameters discussed. - Lab Data Lab Results 05/27/21 Range/Units 13:15 Urine Color Red Urine Appearance Cloudy (Clear) Urine pH 7.0 (5.0-8.0) Ur Specific [place] 1.021 (1.001-1.035) Urine Protein 1+ H (Negative) Urine Glucose (UA) Negative (Negative) Urine Ketones Negative (Negative) Urine Blood Large H (Negative) Urine Nitrite Negative (Negative) Urine Bilirubin Negative (Negative) Urine Urobilinogen <2.0 (<2.0) mg/dL Ur Leukocyte Esterase Small H (Negative) Urine RBC >182 H (0-5) /hpf Urine WBC 16 H (0-5) /hpf Urine Mucus Occasional H (None) /hpf Disposition Clinical Impression: Urinary retention Disposition: HOME SELF-CARE Condition: Stable Instructions (If sedation given, give patient instructions): Urinary Retention in Men (ED) Additional Instructions: Please return to the Emergency Department if symptoms worsen or any other concerns. Is patient prescribed a controlled substance at d/c from ED?: No Referrals: Familia Walters MD [Primary Care Provider] - 1-2 days Sly Tellez MD [STAFF PHYSICIAN] - 1-2 days Time of Disposition: 14:18
[2021-05-27 13:52] LABS: Appearance,Urine Cloudy (Clear); Bilirubin,Urine Negative (Negative); Blood,Urine Large (Negative); Color,Urine Red; Glucose,Urine (UA) Negative (Negative); Ketones,Urine Negative (Negative); Leukocyte Esterase,Urine Small (Negative); Mucus,Urine Occasional /hpf; Nitrite,Urine Negative (Negative); Protein,Urine 1+ (Negative); RBC,Urine >182 /hpf (0-5); Specific Gravity,Urine 1.021 (1.001-1.035); Urobilinogen,Urine <2.0 mg/dL (<2.0); WBC,Urine 16 /hpf (0-5)
== END 2021-05-27 16:57 | disposition home or self-care (01) ==
LOC: EC 11:25
DX: R33.9 Retention of urine, unspecified (principal)
CPT/HCPCS: 51702; 81001; 87086; 99283

== ENCOUNTER 2021-07-15 17:36 | Inpatient (IN) | payer MEDICARE, BC ==
[2021-07-15] MEDS ORDERED: ASPIRIN 81 MG PO STA (17:47)
[2021-07-15 18:39] LABS: Basophils # (A) 0.1 k/uL (0-0.2); Basophils % (A) 0 %; Eosinophils % (A) 0 %; HCT 45.7 % (39.0-53.0); Lymphocytes # (A) 0.8 k/uL (1.0-4.8); Lymphocytes % (A) 7 %; MCH 31.7 pg (25.0-35.0); MCV 96.2 fL (80.0-100.0); Mean Platelet Volume 8.1; Monocytes # (A) 0.5 k/uL (0-1.0); Monocytes % (A) 4 %; Neutrophils % (A) 88 %; Platelet Count 217 k/uL (150-450); RBC 4.75 m/uL (4.30-5.90); RDW 13.7 % (11.5-15.5); WBC 12.5 k/uL (3.8-10.6)
[2021-07-15 18:49] LABS: Albumin 4.3 g/dL (3.5-5.0); Calcium 9.5 mg/dL (8.4-10.2); Potassium 4.5 mmol/L (3.5-5.1); Total Bilirubin 0.8 mg/dL (0.2-1.3)
[2021-07-15 18:56] LABS: INR 1.1 (<1.2); Prothrombin Time 11.3 sec (9.0-12.0)
--- NOTE | 2021-07-15 19:01 | XR ---
EXAMINATION TYPE: XR chest 2V DATE OF EXAM: 07/15/2021 COMPARISON: NONE HISTORY: Chest pain TECHNIQUE: 2 views FINDINGS: Heart and mediastinum are normal. Lungs are clear. Diaphragm is normal. Bony thorax is inta ct. IMPRESSION: Normal chest. There is improved inspiration compared to old exam.
[2021-07-15] MEDS ORDERED: HEPARIN SODIUM 1,000 UN/ML (10ML VL) IV PRN (19:06)
[2021-07-15] MEDS ORDERED: HEPARIN SODIUM 1,000 UN/ML (10ML VL) IV ONE (19:06)
[2021-07-15 19:08] LABS: HGB 15.1 gm/dL (13.0-17.5)
[2021-07-15] MEDS ORDERED: ACETAMINOPHEN TAB 325 MG TAB PO PRN (19:10)
[2021-07-15] MEDS ORDERED: HEPARIN SOD,PORK IN 0.45% NACL 25,000 UNIT in 0.45% NACL 1 250ML.BAG IV SCH (19:15)
[2021-07-15] MEDS: TAMSULOSIN 0.4 MG CAP.ER.24H PO SCH (19:31)
[2021-07-15] MEDS: SODIUM CHLORIDE 0.9% 1,000 ML IV SCH (19:31)
--- NOTE | 2021-07-15 20:15 | ED ---
General Adult HPI - General Chief complaint: Arrhythmia/Palpitations Stated complaint: low blood pressure Time Seen by Provider: 07/15/21 17:44 Source: patient, family, EMS, RN notes reviewed, old records reviewed Mode of arrival: EMS Limitations: language barrier - History of Present Illness Initial comments: Patient is a 65-year-old male with past medical history remarkable for PLS (neurological disorder) which causes him to be unable to speak presents emergency Department with chest pain. Patient has remote history of SVT. He states that at home today, he was having chest discomfort and they noticed that he had worsening color to his skin. They called EMS. EMS arrived and found that his heart rate was in the 210s. They were unable to convert him to normal sinus rhythm with a one-time dose of 6 mg of adenosine. He presented and states that his chest pain has mostly resolved. He took aspirin earlier, 324 mg. His no other acute complaints at this time. Denies any shortness of breath currently, abdominal pain, nausea, vomiting. Denies any cardiac history. No history of blood clots. He presents over concern for his fast heart rate. And chest pain earlier.Describes chest pain as a flutter-like pain that he was experiencing earlier. - Related Data Home Medications Medication Instructions Recorded Confirmed Cholecalciferol [Vitamin D3 (25 50 mcg PO DAILY 05/23/21 07/15/21 Mcg = 1000 Iu)] Simvastatin [Zocor] 40 mg PO HS 05/23/21 07/15/21 Tamsulosin [Flomax] 0.4 mg PO BID 07/15/21 07/15/21 Allergies Allergy/AdvReac Type Severity Reaction Status Date / Time No Known Allergies Allergy Verified 07/15/21 18:50 Review of Systems ROS Statement: Those systems with pertinent positive or pertinent negative responses have been documented in the HPI. Review of Systems: CONST: Denies fever EYES: Denies blurry vision ENT: Denies nasal congestion C/V: Endorse's chest pain that is resolved. RESP: Denies shortness of breath GI: Denies abdominal pain : Denies dysuria SKIN: Denies rash. MSK: Denies joint pain. NEURO: Denies headache ROS Other: All systems not noted in ROS Statement are negative. 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 HEAD: Normal with no signs of head trauma. EYES: PERRLA, EOMI, conjunctiva normal, no discharge. ENT: Hearing grossly intact, normal oropharynx. RESPIRATORY: Clear breath sounds bilaterally. No wheezes, rales, or rhonchi. C/V: Regular rate and rhythm. S1 and S2 auscultated, no edema, peripheral pulse s 2+ and intact throughout ABD: Abd is soft, nontender, nondistended EXT: Normal range of motion, no obvious deformity SKIN: No rashes or lesions observed on exposed skin. NEURO: Alert and oriented 4. No focal deficits. Limitations: language barrier Course Vital Signs 07/15/21 07/15/21 07/15/21 17:39 18:40 19:45 Temperature 97.9 F Pulse Rate 102 H 92 94 Respiratory 20 18 18 Rate Blood Pressure 112/80 110/83 106/82 O2 Sat by Pulse 96 95 95 Oximetry Medical Decision Making - Medical Decision Making Based on patient's presentation and physical exam, I'm concerned for cardiac etiology for his current symptoms. He is no longer in SVT. He is resting comfortably. Already received aspirin. His pain is most resolved. He already received aspirin. Patient was in a cardiac workup including EKG, troponin, chest x-ray. He was in agreement this plan. He will be connected to continuous cardiac monitoring. Patient's EKG shows no signs of acute ischemia. Chest x-ray shows no acute cardiopulmonary process. Laboratory studies are remarkable for an elevated troponin of 0.248 which is likely secondary to SVT. Remainder the labs are relatively unremarkable. Reevaluation come patient remains a symptomatically. I did inform him the results of his laboratory studies. We will start him on heparin over concern for possible ACS and NSTEMI. He was in agreement this plan. He will be admitted to the hospital to telemetry bed. I spoke with cardiology, Dr. Mcnamara was in agreement this plan as well. Cardiac echo was ordered by myself. I spoke with the admitting physician, Dr. Walters who accepted the patient. Patient was admitted in serious condition to telemetry bed. - Lab Data Result diagrams: 07/15/21 18:13 07/15/21 18:13 Lab Results 07/15/21 07/15/21 07/15/21 Range/Units 18:13 18:13 18:13 WBC 12.5 H (3.8-10.6) k/uL RBC 4.75 (4.30-5.90) m/uL Hgb 15.1 D (13.0-17.5) gm/dL Hct 45.7 (39.0-53.0) % MCV 96.2 (80.0-100.0) fL MCH 31.7 (25.0-35.0) pg MCHC 33.0 (31.0-37.0) g/dL RDW 13.7 (11.5-15.5) % Plt Count 217 (150-450) k/uL MPV 8.1 Neutrophils % 88 % Lymphocytes % 7 % Monocytes % 4 % Eosinophils % 0 % Basophils % 0 % Neutrophils # 11.0 H (1.3-7.7) k/uL Lymphocytes # 0.8 L (1.0-4.8) k/uL Monocytes # 0.5 (0-1.0) k/uL Eosinophils # 0.0 (0-0.7) k/uL Basophils # 0.1 (0-0.2) k/uL PT 11.3 (9.0-12.0) sec INR 1.1 (<1.2) APTT 24.0 (22.0-30.0) sec Sodium 138 (137-145) mmol/L Potassium 4.5 (3.5-5.1) mmol/L Chloride 103 (98-107) mmol/L Carbon Dioxide 22 (22-30) mmol/L Anion Gap 13 mmol/L BUN 29 H (9-20) mg/dL Creatinine 1.07 (0.66-1.25) mg/dL Est GFR (CKD-EPI)AfAm 84 (>60 ml/min/1.73 sqM) Est GFR (CKD-EPI)NonAf 73 (>60 ml/min/1.73 sqM) Glucose 122 H (74-99) mg/dL Calcium 9.5 (8.4-10.2) mg/dL Magnesium 2.0 (1.6-2.3) mg/dL Total Bilirubin 0.8 (0.2-1.3) mg/dL AST 29 (17-59) U/L ALT 20 (4-49) U/L Alkaline Phosphatase 104 (38-126) U/L Troponin I (0.000-0.034) ng/mL Total Protein 7.0 (6.3-8.2) g/dL Albumin 4.3 (3.5-5.0) g/dL 07/15/21 Range/Units 18:13 WBC (3.8-10.6) k/uL RBC (4.30-5.90) m/uL Hgb (13.0-17.5) gm/dL Hct (39.0-53.0) % MCV (80.0-100.0) fL MCH (25.0-35.0) pg MCHC (31.0-37.0) g/dL RDW (11.5-15.5) % Plt Count (150-450) k/uL MPV Neutrophils % % Lymphocytes % % Monocytes % % Eosinophils % % Basophils % % Neutrophils # (1.3-7.7) k/uL Lymphocytes # (1.0-4.8) k/uL Monocytes # (0-1.0) k/uL Eosinophils # (0-0.7) k/uL Basophils # (0-0.2) k/uL PT (9.0-12.0) sec INR (<1.2) APTT (22.0-30.0) sec Sodium (137-145) mmol/L Potassium (3.5-5.1) mmol/L Chloride (98-107) mmol/L Carbon Dioxide (22-30) mmol/L Anion Gap mmol/L BUN (9-20) mg/dL Creatinine (0.66-1.25) mg/dL Est GFR (CKD-EPI)AfAm (>60 ml/min/1.73 sqM) Est GFR (CKD-EPI)NonAf (>60 ml/min/1.73 sqM) Glucose (74-99) mg/dL Calcium (8.4-10.2) mg/dL Magnesium (1.6-2.3) mg/dL Total Bilirubin (0.2-1.3) mg/dL AST (17-59) U/L ALT (4-49) U/L Alkaline Phosphatase (38-126) U/L Troponin I 0.248 H* (0.000-0.034) ng/mL Total Protein (6.3-8.2) g/dL Albumin (3.5-5.0) g/dL - EKG Data -: EKG Interpreted by Me EKG Comments: 12-lead Electrocardiogram Interpretation Note EKG was reviewed and interpreted by myself. 12-lead ECG performed at 1802 is interpreted by me as revealing normal sinus rhythm at a rate of 97 beats per minute. [place] is normal. CO interval is 144 ms, QRS ration is 70 ms, QTc is 424 ms.. There were no ST or T wave abnormalities to suggest myocardial ischemia or injury. R wave progression across the precordium was satisfactory. By my interpretation this EKG is non-diagnostic for acute ischemia. Disposition Clinical Impression: SVT (supraventricular tachycardia), Elevated troponin Disposition: ADMITTED IP TO THIS HOSP Condition: Serious
[2021-07-15] MEDS ORDERED: ATORVASTATIN 20 MG TAB PO SCH (21:00)
[2021-07-16 07:53] VITALS: RESP 18; TEMP 97.6
[2021-07-16] MEDS: TAMSULOSIN 0.4 MG CAP.ER.24H PO SCH (08:19)
[2021-07-16 08:46] LABS: Basophils # (A) 0.1 k/uL (0-0.2); Basophils % (A) 1 %; Eosinophils # (A) 0.1 k/uL (0-0.7); Eosinophils % (A) 1 %; HCT 42.8 % (39.0-53.0); HGB 13.7 gm/dL (13.0-17.5); Lymphocytes # (A) 1.1 k/uL (1.0-4.8); Lymphocytes % (A) 15 %; MCH 31.1 pg (25.0-35.0); MCHC 31.9 g/dL (31.0-37.0); MCV 97.5 fL (80.0-100.0); Mean Platelet Volume 7.8; Monocytes # (A) 0.3 k/uL (0-1.0); Monocytes % (A) 4 %; Neutrophils # (A) 5.5 k/uL (1.3-7.7); Neutrophils % (A) 77 %; Platelet Count 195 k/uL (150-450); RBC 4.39 m/uL (4.30-5.90); RDW 13.7 % (11.5-15.5); WBC 7.2 k/uL (3.8-10.6)
[2021-07-16 09:02] LABS: INR 1.1 (<1.2); Prothrombin Time 11.4 sec (9.0-12.0)
[2021-07-16 09:45] LABS: African American GFR (CKD) >90 (>60 ml/min/1.73 sqM); Anion Gap 8 mmol/L; Blood Urea Nitrogen 28 mg/dL (9-20); Calcium 8.9 mg/dL (8.4-10.2); Carbon Dioxide 29 mmol/L (22-30); Chloride 101 mmol/L (98-107); Glucose 117 mg/dL (74-99); Non-African American GFR(CKD) >90 (>60 ml/min/1.73 sqM); Sodium 138 mmol/L (137-145)
[2021-07-16] MEDS: SODIUM CHLORIDE 0.9% 1,000 ML IV SCH (09:53)
--- NOTE | 2021-07-16 10:42 | P.CRDCN ---
History of Present Illness Consult date: 07/16/21 Chief complaint: Not feeling well History of present illness: This is a 65-year-old gentleman with a past medical history significant for ALS who was brought to the emergency department because he was not feeling well. The patient underwent recently knee surgery. He was in his usual state of health until yesterday when he told his that he was not feeling well. He reported feeling heart racing associated with dizziness but no presyncope or syncope. No symptoms of chest pain or chest discomfort. 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 He was given adenosine and subsequently converted to normal sinus mechanism and has been maintaining normal sinus mechanism. The troponin came in to be slightly elevated but seems to be flat across support. The EKG after conversion showed sinus rhythm without any ST or T-wave abnormalities concerning for ischemia and the patient remains chest pain-free and feeling better after he is in sinus rhythm. No history of coronary artery disease or congestive heart failure or cardiac arrhythmia at the patient never seen by a emd special education teacher in the past. Currently he is on heparin. From the cardiac standpoint of view, the patient potentially can be discharged home. I'm going to start him on Toprol-XL at 25 mg by mouth daily and also on aspirin. Beside that I'm going to DC the heparin. The patient and his asking to go home if it's possible which I think it is. 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 History of Any Multi-Drug Resistant Organisms: None Reported Past Surgical History: Orthopedic Surgery Additional Past Surgical History / Comment(s): Left Hip surgery 05/24/21 Past Anesthesia/Blood Transfusion Reactions: No Reported Reaction Past Psychological History: No Psychological Hx Reported Smoking Status: Never smoker Past Alcohol Use History: None Reported Medications and Allergies Home Medications Medication Instructions Recorded Confirmed Type Cholecalciferol [Vitamin D3 (25 50 mcg PO DAILY 05/23/21 07/15/21 History Mcg = 1000 Iu)] Simvastatin [Zocor] 40 mg PO HS 05/23/21 07/15/21 History Tamsulosin [Flomax] 0.4 mg PO BID 07/15/21 07/15/21 History Allergies Allergy/AdvReac Type Severity Reaction Status Date / Time No Known Allergies Allergy Verified 07/15/21 18:50 Physical Exam Vitals: Vital Signs Temp Pulse Resp BP Pulse Ox 07/16/21 10:22 95 18 111/83 96 07/16/21 09:30 67 18 109/72 96 07/16/21 08:21 80 18 98/68 96 07/16/21 07:35 97.6 F 73 18 105/73 96 07/16/21 06:24 62 20 83/60 96 07/16/21 05:04 71 20 91/47 95 07/16/21 04:05 84 18 96/61 95 07/16/21 01:02 84 16 102/66 96 07/15/21 22:55 88 18 124/76 95 07/15/21 21:45 90 18 110/80 97 07/15/21 20:45 98 18 112/74 95 07/15/21 19:45 94 18 106/82 95 07/15/21 18:40 92 18 110/83 95 07/15/21 17:39 97.9 F 102 H 20 112/80 96 Intake and Output 07/15/21 07/16/21 07/16/21 22:59 06:59 14:59 Intake Total 55.834 73.778 Balance 55.834 73.778 Intake: Intake, IV Titration 55.834 73.778 Amount Heparin Sod,Pork in 0.45% 55.834 73.778 NaCl 25,000 unit In 0.45 % NaCl 1 250ml.bag @ 12 UNITS/KG/HR 8.546 mls/hr IV .Q24H [facility] Rx#: [id number] Other: Weight 71.214 kg - Constitutional General appearance: no acute distress - Respiratory Respiratory: bilateral: CTA - Cardiovascular Rhythm: regular Results 07/16/21 08:20 07/16/21 08:20 Cardiac Enzymes 07/15/21 07/15/21 07/15/21 Range/Units 18:13 18:13 21:06 AST 29 (17-59) U/L Troponin I 0.248 H* 0.582 H* (0.000-0.034) ng/mL 07/15/21 Range/Units 23:53 AST (17-59) U/L Troponin I 0.702 H* (0.000-0.034) ng/mL Coagulation 07/15/21 07/16/21 07/16/21 Range/Units 18:13 08:20 Unknown PT 11.3 11.4 (9.0-12.0) sec APTT 24.0 56.0 H 42.8 H (22.0-30.0) sec CBC 07/15/21 07/16/21 Range/Units 18:13 08:20 WBC 12.5 H 7.2 (3.8-10.6) k/uL RBC 4.75 4.39 (4.30-5.90) m/uL Hgb 15.1 D 13.7 (13.0-17.5) gm/dL Hct 45.7 42.8 (39.0-53.0) % Plt Count 217 195 (150-450) k/uL Comprehensive Metabolic Panel 07/15/21 07/16/21 Range/Units 18:13 08:20 Sodium 138 138 (137-145) mmol/L Potassium 4.5 4.0 (3.5-5.1) mmol/L Chloride 103 101 (98-107) mmol/L Carbon Dioxide 22 29 (22-30) mmol/L BUN 29 H 28 H (9-20) mg/dL Creatinine 1.07 0.72 (0.66-1.25) mg/dL Glucose 122 H 117 H (74-99) mg/dL Calcium 9.5 8.9 (8.4-10.2) mg/dL AST 29 (17-59) U/L ALT 20 (4-49) U/L Alkaline Phosphatase 104 (38-126) U/L Total Protein 7.0 (6.3-8.2) g/dL Albumin 4.3 (3.5-5.0) g/dL Current Medications Generic Name Dose Route Start Last Admin Trade Name Freq PRN Reason Stop Dose Admin Acetaminophen 650 mg 07/15/21 19:10 07/16/21 01:39 Acetaminophen Tab 325 Mg Tab PO 650 mg Q6HR PRN Administration Mild Pain or Fever > 100.5 Atorvastatin Calcium 20 mg 07/15/21 21:00 07/15/21 19:31 Atorvastatin 20 Mg Tab PO 20 mg HS [facility] Administration Heparin Sodium (Porcine) 0 unit 07/15/21 19:06 07/16/21 02:05 Heparin Sodium 1,000 Un/Ml (10ml Vl) IV 1,780 unit PER PROTOCOL PRN Administration Low PTT Protocol Sodium Chloride 1,000 mls @ 75 mls/hr 07/15/21 19:15 07/16/21 09:53 Saline 0.9% IV 75 mls/hr .[id number] [facility] Administration Metoprolol Succinate 25 mg 07/17/21 09:00 Metoprolol Succinate (Er) 25 Mg Tab.Er.24h PO DAILY [facility] Tamsulosin HCl 0.4 mg 07/15/21 21:00 07/16/21 08:19 Tamsulosin 0.4 Mg Cap.Er.24h PO 0.4 mg BID [facility]OR[facility] Administration Intake and Output 07/15/21 07/16/21 07/16/21 22:59 06:59 14:59 Intake Total 55.834 73.778 Balance 55.834 73.778 Intake: Intake, IV Titration 55.834 73.778 Amount Heparin Sod,Pork in 0.45% 55.834 73.778 NaCl 25,000 unit In 0.45 % NaCl 1 250ml.bag @ 12 UNITS/KG/HR 8.546 mls/hr IV .Q24H [facility] Rx#: [id number] Other: Weight 71.214 kg 07/16/21 08:20 07/16/21 08:20 Assessment and Plan Assessment: Assessment #1 narrow complex tachycardia consistent with AVNRT #2 history of ALS #3 evidence of myocardial injury without any evidence of ischemia likely secondary to tachycardia Plan #1 start the patient AV rolando nirmal agents was Toprol-XL #2 start the patient on aspirin #3 DC heparin #4 the patient can be discharged home
--- NOTE | 2021-07-16 11:52 | P.DS ---
Providers Date of admission: 07/15/21 19:10 Expected date of discharge: 07/16/21 Attending physician: Familia Walters Consults: 07/15/21 19:11 Consult Physician Routine Consulting Provider: William Mcnamara Consult Reason/Comments: elevated troponin, svt Do you want consulting provider notified?: Yes Primary care physician: Familia Walters Hospital Course: HISTORY OF PRESENT ILLNESS This is a 65-year-old male patient with past medical history of amyotrophic lateral sclerosis, hyperlipidemia, vitamin D deficiency, detrusor instability of the bladder with neurogenic bladder Patient is quite active despite his diagnosis of ALS/PLS including works out with weights twice weekly with a associate trainer was recently hospitalized at [facility] in 05/24/2021 a fter he fell going to the bathroom ended up with,Left intratrochanteric hip fracture for which she underwent intramedullary nailing and subsequently he was transferred to [facility] for physical therapy rehabilitation since that he was moved out of [facility] and he has been at home with the help of physical therapy patient has been exercising and double to have a some chest pain a few days ago that did not last for long period of time, yesterday his called me stated that patient appears to be generally weak and his heart rate is ranging from 120 270 bpm, I asked her to call EMS and transferred for the patient to the emergency department at [facility] where he was found to have an SVT he was terminated by EMS personnel who give the patient Adenocard patient recovering well, however his troponin was slightly elevated likely related to SVT, so he was admitted to the hospital for evaluation by cardiology patient was seen in consultation by cardiology was recommended for the patient to be followed as an outpatient with Dr. Mcnamara for further evaluation and recommendation. Discharge diagnoses: 1. Supraventricular tachycardia. Terminated by given 1 dose of Adenocard. 2. Slight elevation of troponin likely related to the SVT. 3. Amyotrophic lateral sclerosis/PLS Stable at baseline 3. Hyperlipidemia. 4. Overactive bladder/ neurogenic bladder. Patient Condition at Discharge: Serious Plan - Discharge Summary New Discharge Prescriptions: New Metoprolol Succinate (ER) [Toprol XL] 25 mg PO DAILY #90 tablet Aspirin 81 mg PO DAILY tab Continue Cholecalciferol [Vitamin D3 (25 Mcg = 1000 Iu)] 50 mcg PO DAILY Simvastatin [Zocor] 40 mg PO HS Tamsulosin [Flomax] 0.4 mg PO BID Discharge Medication List Cholecalciferol [Vitamin D3 (25 Mcg = 1000 Iu)] 50 mcg PO DAILY 05/23/21 [History] Simvastatin [Zocor] 40 mg PO HS 05/23/21 [History] Tamsulosin [Flomax] 0.4 mg PO BID 07/15/21 [History] Aspirin 81 mg PO DAILY tab 07/16/21 [Rx] Metoprolol Succinate (ER) [Toprol XL] 25 mg PO DAILY #90 tablet 07/16/21 [Rx] Follow up Appointment(s)/Referral(s): Familia Walters MD [Primary Care Provider] - 1 Week (please call office tomorrow and make appointment) William Mcnamara MD [STAFF PHYSICIAN] - 1 Week (please office in the morning and make appointment ) Patient Instructions/Handouts: Supraventricular Tachycardia (DC) Discharge Disposition: HOME SELF-CARE
--- NOTE | 2021-07-16 11:52 | P.HPIM ---
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 was recently hospitalized at [facility] in 05/24/2021 after he fell going to the bathroom ended up with,Left intratrochanteric hip fracture for which she underwent intramedullary nailing and subsequently he was transferred to [facility] for physical therapy rehabilitation since that he was moved out of [facility] and he has been at home with the help of physical therapy patient has been exercising and double to have a some chest pain a few days ago that did not last for long period of time, yesterday his called me stated that patient appears to be generally weak and his heart rate is ranging from 120 270 bpm, I asked her to call EMS and transferred for the patient to the emergency department at [facility] where he was found to have an SVT he was terminated by EMS personnel who give the patient Adenocard patient recovering well, however his troponin was slightly elevated likely related to SVT, so he was admitted to the hospital for evaluation by cardiology patient was seen in consultation by cardiology was recommended for the patient to be followed as an outpatient with Dr. Mcnamara for further evaluation and recommendation. REVIEW OF SYSTEMS Constitutional: No fever, no chills, no night sweats. No weight change. No weakness, fatigue or lethargy. No daytime sleepiness. HEENT: No headache. No blurred vision or double vision, no loss of vision. No loss of Hearing, no ringing in the ears, no dizziness. No nasal drainage or congestion. No epistaxis. No sore throat. Lungs: No shortness of breath, cough, no sputum production. No wheezing. Cardiovascular: No chest pain, no lower extremity edema. No palpitations. No paroxysmal nocturnal dyspnea. No orthopnea. No lightheadedness or dizziness. No syncopal episodes. positive for palpitation Abdominal: No abdominal pain. No nausea, vomiting. No diarrhea. No constipation. No bloody or tarry stools. No loss of appetite. Genitourinary: No dysuria, increased frequency, urgency. No urinary retention. Musculoskeletal: No myalgias. No muscle weakness, positive for gait dysfunction, no frequent falls. No back pain. No neck pain. Integumentary: there is buttock stage 2 pressure wound, no lesions. No rash or pruritus. No unusual bruising. No change in hair or nails. Neurologic: positive for aphasia. No facial droop. No change in mentation. No head injury. No headache, positive for rigidity of both lower extremities with spasticity . Psychiatric: No depression. No anxiety. No mood swings. Endocrine: No abnormal blood sugars. No weight change. No excessive sweating or thirst. No cold intolerance. MEDICAL HISTORY Amyotrophic lateral sclerosis Hyperlipidemia Vitamin D deficiency Detrusor instability of the bladder SURGICAL HISTORY Achilles tendon repair on the right Right inguinal hernia repair SOCIAL HISTORY Patient smoked for 10 years and quit at age 26. Occasional alcohol use, no illicit drug use. Patient lives at home with his . FAMILY HISTORY Father at age 70 from diabetes mellitus type 2. Mother at age 50 from myocardial infarction. Patient is a total of 3 brothers; 2 , one in his 60s with coronary artery disease due to cardiac arrest from Hu-Elizabeth syndrome, one brother in his 20s from aplastic anemia patient has 1 brother alive with AVR. Patient has 1 son and 1 daughter with no major medical problems. PHYSICAL EXAMINATION Gen: This is this is a 65-year-old male. He is resting in bed appears to be fairly comfortable. HEENT: Head is atraumatic, normocephalic. Pupils equal, round. Sclerae is anicteric, mucous membranes of the mouth are moist minimal drooling NECK: Supple. No JVD. No lymphadenopathy. No thyromegaly. LUNGS: Clear to auscultation. No wheezes or rhonchi. No intercostal retractions. HEART: First heart sound is normal, second heart sounds normal there is no gallop or murmur. ABDOMEN: Soft. Bowel sounds are present. No masses. No tenderness. EXTREMITIES: +1 pedal edema, no calf tenderness, dorsalis pedis +2 bilaterally. NEUROLOGICAL: Patient is awake, alert and oriented x3, bilateral lower extremity weakness with rigidity of both lower extremities, aphasia ASSESSMENT AND PLAN 1. Supraventricular tachycardia. Terminated by given 1 dose of Adenocard. Pat ient is currently back into sinus rhythm, patient was seen in consultation by cardiology was recommended for the patient be discharged home with follow-up with him as an outpatient for echocardiogram. 2. Slight elevation of troponin likely related to the SVT. No evidence of acute coronary syndrome patient was seen in consultation by cardiology he was cleared to be discharged and follow-up as an outpatient. 3. Amyotrophic lateral sclerosis/PLS Stable at baseline 3. Hyperlipidemia. Continue simvastatin 40 mg at bedtime. 4. Overactive bladder/ neurogenic bladder, currently has Garcia catheter in place. 5. GI prophylaxis. continue with protonix 40 mg orally once every day. 6. DVT prophylaxis. currently on heparin drip. 7. Observation. 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 History of Any Multi-Drug Resistant Organisms: None Reported Past Surgical History: Orthopedic Surgery Additional Past Surgical History / Comment(s): Left Hip surgery 05/24/21 Past Anesthesia/Blood Transfusion Reactions: No Reported Reaction Past Psychological History: No Psychological Hx Reported Smoking Status: Never smoker Past Alcohol Use History: None Reported Medications and Allergies Home Medications Medication Instructions Recorded Confirmed Type Cholecalciferol [Vitamin D3 (25 50 mcg PO DAILY 05/23/21 07/15/21 History Mcg = 1000 Iu)] Simvastatin [Zocor] 40 mg PO HS 05/23/21 07/15/21 History Tamsulosin [Flomax] 0.4 mg PO BID 07/15/21 07/15/21 History Allergies Allergy/AdvReac Type Severity Reaction Status Date / Time No Known Allergies Allergy Verified 07/15/21 18:50 Physical Exam Vitals: Vital Signs Temp Pulse Resp BP Pulse Ox 07/16/21 10:22 95 18 111/83 96 07/16/21 09:30 67 18 109/72 96 07/16/21 08:21 80 18 98/68 96 07/16/21 07:35 97.6 F 73 18 105/73 96 07/16/21 06:24 62 20 83/60 96 07/16/21 05:04 71 20 91/47 95 07/16/21 04:05 84 18 96/61 95 07/16/21 01:02 84 16 102/66 96 07/15/21 22:55 88 18 124/76 95 07/15/21 21:45 90 18 110/80 97 07/15/21 20:45 98 18 112/74 95 07/15/21 19:45 94 18 106/82 95 07/15/21 18:40 92 18 110/83 95 07/15/21 17:39 97.9 F 102 H 20 112/80 96 Intake and Output 07/15/21 07/16/21 07/16/21 22:59 06:59 14:59 Intake Total 55.834 73.778 Balance 55.834 73.778 Intake: Intake, IV Titration 55.834 73.778 Amount Heparin Sod,Pork in 0.45% 55.834 73.778 NaCl 25,000 unit In 0.45 % NaCl 1 250ml.bag @ 12 UNITS/KG/HR 8.546 mls/hr IV .Q24H [facility] Rx#: [id number] Other: Weight 71.214 kg Results CBC & Chem 7: 07/16/21 08:20 07/16/21 08:20 Labs: Abnormal Lab Results - Last 24 Hours (Table) 07/15/21 07/15/21 07/15/21 Range/Units 18:13 18:13 18:13 WBC 12.5 H (3.8-10.6) k/uL Neutrophils # 11.0 H (1.3-7.7) k/uL Lymphocytes # 0.8 L (1.0-4.8) k/uL APTT (22.0-30.0) sec BUN 29 H (9-20) mg/dL Glucose 122 H (74-99) mg/dL Troponin I 0.248 H* (0.000-0.034) ng/mL 07/15/21 07/15/21 07/16/21 Range/Units 21:06 23:53 08:20 WBC (3.8-10.6) k/uL Neutrophils # (1.3-7.7) k/uL Lymphocytes # (1.0-4.8) k/uL APTT 56.0 H (22.0-30.0) sec BUN (9-20) mg/dL Glucose (74-99) mg/dL Troponin I 0.582 H* 0.702 H* (0.000-0.034) ng/mL 07/16/21 07/16/21 Range/Units 08:20 Unknown WBC (3.8-10.6) k/uL Neutrophils # (1.3-7.7) k/uL Lymphocytes # (1.0-4.8) k/uL APTT 42.8 H (22.0-30.0) sec BUN 28 H (9-20) mg/dL Glucose 117 H (74-99) mg/dL Troponin I (0.000-0.034) ng/mL
[2021-07-16 12:04] VITALS: BP 117/83; PULSE 80
[2021-07-17] MEDS ORDERED: ASPIRIN 81 MG PO SCH (09:00)
[2021-07-17] MEDS ORDERED: METOPROLOL SUCCINATE (ER) 25 MG TAB.ER.24H PO SCH (09:00)
== END 2021-07-16 12:05 | disposition home or self-care (01) | DRG 309 ==
LOC: EC 17:36 → 3SCARD 19:10
PROVIDERS: ADMIT Internal Medicine; ATTEND Internal Medicine
DX: I47.1 Supraventricular tachycardia (principal); G12.21 Amyotrophic lateral sclerosis; R47.01 Aphasia; I5A Non-ischemic myocardial injury (non-traumatic); Z20.822 Contact with and (suspected) exposure to COVID-19; R53.1 Weakness; E78.5 Hyperlipidemia, unspecified; E55.9 Vitamin D deficiency, unspecified; I48.92 Unspecified atrial flutter; N31.9 Neuromuscular dysfunction of bladder, unspecified; N32.81 Overactive bladder; Z79.899 Other long term (current) drug therapy; Z87.891 Personal history of nicotine dependence
CPT/HCPCS: 36415; 71046; 80048; 80053; 83735; 84484; 85025; 85610; 85730; 87635; 93005; 96365; 96366; 96375; 96376; 99285

== ENCOUNTER → 2024-01-09 | Outpatient (CLI) | payer MEDICARE, BC ==
--- NOTE | 2024-01-09 13:16 | XR ---
EXAMINATION TYPE: XR chest 2V DATE OF EXAM: 01/09/2024 12:39 PM CLINICAL INDICATION:Male, 68 years old with history of R09.89 OTH SYMPTOMS AND SIGNS INVOLVING THE CI RC A; PH[facility] COMPARISON: None TECHNIQUE: XR chest 2V Frontal and lateral views of the chest. FINDINGS: Lungs/Pleura: There is no evidence of pleural effusion, focal consolidation, or pneumothorax. Pulmonary vascularity: Unremarkable. Heart/mediastinum: Cardiomediastinal silhouette is unremarkable. Musculoskeletal: No acute osseous pathology. Other findings: None IMPRESSION: No acute cardiopulmonary disease/process.
== END | disposition home or self-care (01) ==
LOC: RADXRMAIN 12:18
PROVIDERS: ATTEND Registered Nurse
DX: R09.89 Other specified symptoms and signs involving the circulatory and respiratory systems (principal)
CPT/HCPCS: 71046